=== PATIENT | female | born 1990 | race Caucasian/White ===

== ENCOUNTER 2020-06-18 19:30 | Emergency (ER) | payer OTHER, MEDICARE | END 2020-06-19 00:12 | disposition home or self-care (01) | LOC: CSHERS 19:30 | DX: G97.1 Other reaction to spinal and lumbar puncture (principal); M54.5 Low back pain; I10 Essential (primary) hypertension; G35 Multiple sclerosis; F17.210 Nicotine dependence, cigarettes, uncomplicated; Z79.899 Other long term (current) drug therapy; Y84.4 Aspiration of fluid as the cause of abnormal reaction of the patient, or of later complication, without mention of misadventure at the time of the procedure | CPT/HCPCS: 72158 ==